=== PATIENT | female | born 1970 | race Two or more races ===

== ENCOUNTER 2023-09-02 16:19 | Inpatient (IN) | payer MEDICAID ==
[~2023-09-02] VITALS: Ht 160 cm; Wt 64.2 kg
[2023-09-02] MEDS ORDERED: SODIUM CHLORIDE 0.9% 1,000 ML IV ONE (16:45)
[2023-09-02 17:34] LABS: ALCOHOL, URINE DRUG SCREEN NEGATIVE (NEGATIVE); AMPHET/METH SCREEN,URINE POSITIVE (NEGATIVE); BARBITURATE SCREEN, URINE NEGATIVE (NEGATIVE); BENZODIAZEPINES SCREEN,URINE NEGATIVE (NEGATIVE); CANNABINOID SCREEN,URINE NEGATIVE (NEGATIVE); COCAINE SCREEN,URINE NEGATIVE (NEGATIVE); METHADONE SCREEN, URINE NEGATIVE (NEGATIVE); OPIATE SCREEN,URINE NEGATIVE (NEGATIVE); PHENCYCLIDINE SCREEN,URINE NEGATIVE (NEGATIVE)
[2023-09-02 17:49] LABS: COVID AG,FIA SOURCE NASAL SWAB
[2023-09-02 18:11] LABS: BASOPHILS % (AUTO) 0.6 % (0.0-2.0); HEMATOCRIT 41.9 % (36-46); HEMOGLOBIN 14.1 g/dL (12.0-16.0); LYMPHOCYTES # (AUTO) 1.3 K/uL (1.0-4.8); LYMPHOCYTES % (AUTO) 21.1 % (22.0-44.0); MEAN CORPUSCULAR HEMOGLOBIN 28.6 pg (26.0-34.0); MEAN CORPUSCULAR HGB CONC 33.7 G/dL (31.0-37.0); MEAN CORPUSCULAR VOLUME 85 fL (80-100); MONOCYTES # (AUTO) 0.5 K/uL (0.1-1.0); MONOCYTES % (AUTO) 8.4 % (2.0-9.0); NEUTROPHILS # (AUTO) 4.1 K/uL (1.8-7.7); NEUTROPHILS % (AUTO) 66.9 % (40.0-70.0); PLATELET COUNT (AUTO) 345 K/uL (150-450); RED BLOOD CELL COUNT(AUTO) 4.93 MIL/uL (4.00-5.20); RED CELL DISTRIBUTION WIDTH 13.5 % (11.5-14.5); WHITE BLOOD COUNT (AUTO) 6.1 K/uL (4.5-11.0)
[2023-09-02 18:12] LABS: SARS-COV2 (COVID) ANTIGEN,FIA Negative (Negative)
[2023-09-02 18:20] LABS: ANION GAP 8 mmol/L (8-16); CALCIUM, TOTAL 9.4 mg/dL (8.8-10.5); CARBON DIOXIDE 29 mmol/L (22-29); CHLORIDE 100 mmol/L (98-107); CREATININE 0.61 mg/dL (0.60-1.30); GLOMERULAR FILTR. RATE CALC > 60 mL/min (>60); GLUCOSE,RANDOM 233 mg/dL (70-110); POTASSIUM 3.7 mmol/L (3.5-5.1); SODIUM SERUM 137 mmol/L (136-145); UREA NITROGEN, BLOOD 17 mg/dL (7-18)
[2023-09-02 18:26] LABS: ALANINE AMINOTRANSFERASE 35 U/L (12-78); ALBUMIN 4.2 g/dL (3.4-5.0); ALKALINE PHOSPHATASE 97 U/L (46-116); ASPARTATE AMINOTRANSFERASE 20 U/L (15-37); BILIRUBIN,TOTAL 0.6 mg/dL (0.1-1.0)
[2023-09-02 18:32] LABS: ACETAMINOPHEN < 10 mcg/mL (10-30)
[2023-09-02 18:33] LABS: ALCOHOL, BLOOD (SERUM) < 3 mg/dL (0-10)
[2023-09-02 18:39] LABS: SALICYLATE 0.2 mg/dL (2.8-20.0)
[2023-09-02] MEDS ORDERED: LORazepam 2 MG/ML VIAL IM ONE ×2 (20:00→23:15)
[2023-09-02 22:24] LABS: ANION GAP 8 mmol/L (8-16); CALCIUM, TOTAL 9.2 mg/dL (8.8-10.5); CARBON DIOXIDE 29 mmol/L (22-29); CHLORIDE 101 mmol/L (98-107); GLOMERULAR FILTR. RATE CALC > 60 mL/min (>60); GLUCOSE,RANDOM 224 mg/dL (70-110); POTASSIUM 3.4 mmol/L (3.5-5.1); SODIUM SERUM 138 mmol/L (136-145); UREA NITROGEN, BLOOD 16 mg/dL (7-18)
[2023-09-02 22:29] LABS: ALANINE AMINOTRANSFERASE 35 U/L (12-78); ALBUMIN 4.2 g/dL (3.4-5.0); ALKALINE PHOSPHATASE 98 U/L (46-116); ASPARTATE AMINOTRANSFERASE 20 U/L (15-37); BILIRUBIN,TOTAL 0.6 mg/dL (0.1-1.0); TOTAL PROTEIN, SERUM 8.1 g/dL (6.4-8.2)
[2023-09-02 22:35] LABS: ACETAMINOPHEN < 2 mcg/mL (10-30)
[2023-09-02] MEDS ORDERED: HALOPERIDOL LACTATE 5 MG/ML VIAL IM ONE (23:15)
[2023-09-02] MEDS ORDERED: DiphenhydrAMINE HCL 50 MG/ML VIAL IM ONE (23:15)
[2023-09-03 02:51] VITALS: BP 125/89; PULSE 88; RESP 18; TEMP 97.6; O2SAT 98
[2023-09-03] MEDS ORDERED: PNEUMOCOCCAL VACCINE POLYVALENT 0.5 ML SYRINGE [PPSV23] IM. ONE (03:45)
[2023-09-03] MEDS ORDERED: CloNIDine HCL 0.1 MG TABLET PO PRN (06:00)
[2023-09-03] MEDS ORDERED: POTASSIUM CHLORIDE 20 MEQ ER TABLET PO ONE (06:00)
[2023-09-03] MEDS ORDERED: ACETAMINOPHEN 325 MG TABLET PO PRN (06:00)
[2023-09-03] MEDS ORDERED: DOCUSATE SODIUM 100 MG CAPSULE PO PRN (06:00)
[2023-09-03] MEDS ORDERED: ALBUTEROL SULFATE HFA 90 MCG/PUFF 8 GM INHALER IH PRN (06:00)
[2023-09-03] MEDS ORDERED: OMEPRAZOLE 20 MG CAPSULE PO PRN (06:00)
[2023-09-03] MEDS ORDERED: MAG HYDROX/ALUMINUM HYD/SIMETH ES 30 ML SUSPENSION UDCUP PO PRN (06:00)
[2023-09-03] MEDS ORDERED: ONDANSETRON HCL 4 MG TABLET PO PRN (06:00)
[2023-09-03] MEDS ORDERED: BACITRACIN 28 GM OINTMENT TP PRN (06:00)
[2023-09-03] MEDS ORDERED: LOPERAMIDE HCL 2 MG CAPSULE PO PRN (06:00)
[2023-09-03] MEDS ORDERED: BENZOCAINE/MENTHOL LOZENGE PO PRN (06:00)
[2023-09-03] MEDS ORDERED: MAGNESIUM HYDROXIDE SUSPENSION 30 ML UDCUP PO PRN (06:00)
[2023-09-03] MEDS ORDERED: GLUCAGON,HUMAN RECOMBINANT 1 MG VIAL IM PRN (06:00)
[2023-09-03] MEDS ORDERED: PETROLATUM,WHITE 28 GM JELLY TP PRN (06:00)
[2023-09-03 06:36] LABS: GLUCOMETER DEV NAME(LOC) BV3S.; GLUCOSE,POINT OF CARE 164 MG/DL (70-110)
[2023-09-03] MEDS: INSULIN LISPRO 100 UNITS/ML SQ PRN ×4 (06:49→20:06)
[2023-09-03] MEDS: HALOPERIDOL 5 MG TABLET PO PRN (08:06)
[2023-09-03] MEDS: LORazepam 2 MG TABLET PO PRN (08:06)
[2023-09-03 10:04] VITALS: RESP 18; O2SAT 97
[2023-09-03 10:05] VITALS: BP 116/74; PULSE 79; RESP 16; TEMP 97.6; O2SAT 97
[2023-09-03] MEDS: IBUPROFEN 600 MG TABLET PO PRN (10:05)
[2023-09-03 11:04] VITALS: RESP 17; O2SAT 97
[2023-09-03 11:36] LABS: GLUCOMETER DEV NAME(LOC) BV3S.; GLUCOSE,POINT OF CARE 188 MG/DL (70-110)
[2023-09-03 17:51] LABS: GLUCOMETER DEV NAME(LOC) BV3S.; GLUCOSE,POINT OF CARE 262 MG/DL (70-110)
[2023-09-03] MEDS: ZOLPIDEM TARTRATE 10 MG TABLET PO PRN (20:01)
[2023-09-03 20:16] LABS: GLUCOMETER DEV NAME(LOC) BV3S.; GLUCOSE,POINT OF CARE 289 MG/DL (70-110)
[2023-09-03 20:50] VITALS: BP 105/69; PULSE 91; RESP 18; TEMP 97.6; O2SAT 99
[2023-09-04 06:31] LABS: GLUCOMETER DEV NAME(LOC) BV3S.; GLUCOSE,POINT OF CARE 188 MG/DL (70-110)
[2023-09-04] MEDS: INSULIN LISPRO 100 UNITS/ML SQ PRN ×3 (06:39→20:39)
[2023-09-04 08:18] LABS: BASOPHILS % (AUTO) 0.4 % (0.0-2.0); EOSINOPHILS % (AUTO) 6.3 % (1.0-6.0); HEMATOCRIT 41.2 % (36-46); HEMOGLOBIN 14.3 g/dL (12.0-16.0); LYMPHOCYTES # (AUTO) 1.5 K/uL (1.0-4.8); LYMPHOCYTES % (AUTO) 26.4 % (22.0-44.0); MEAN CORPUSCULAR HEMOGLOBIN 29.5 pg (26.0-34.0); MEAN CORPUSCULAR HGB CONC 34.6 G/dL (31.0-37.0); MEAN CORPUSCULAR VOLUME 85 fL (80-100); MONOCYTES # (AUTO) 0.4 K/uL (0.1-1.0); MONOCYTES % (AUTO) 7.3 % (2.0-9.0); NEUTROPHILS # (AUTO) 3.4 K/uL (1.8-7.7); NEUTROPHILS % (AUTO) 59.6 % (40.0-70.0); PLATELET COUNT (AUTO) 349 K/uL (150-450); RED BLOOD CELL COUNT(AUTO) 4.84 MIL/uL (4.00-5.20); RED CELL DISTRIBUTION WIDTH 13.3 % (11.5-14.5); WHITE BLOOD COUNT (AUTO) 5.6 K/uL (4.5-11.0)
[2023-09-04] MEDS: IBUPROFEN 600 MG TABLET PO PRN (08:19)
[2023-09-04] MEDS: HALOPERIDOL 5 MG TABLET PO PRN (08:20)
[2023-09-04] MEDS: LORazepam 2 MG TABLET PO PRN ×2 (08:20→17:26)
[2023-09-04 08:28] VITALS: BP 116/72; PULSE 74; RESP 16; TEMP 97.6; O2SAT 97
[2023-09-04 08:50] LABS: ALANINE AMINOTRANSFERASE 35 U/L (12-78); ALBUMIN 3.6 g/dL (3.4-5.0); ALKALINE PHOSPHATASE 89 U/L (46-116); ANION GAP 8 mmol/L (8-16); ASPARTATE AMINOTRANSFERASE 21 U/L (15-37); BILIRUBIN,TOTAL 0.7 mg/dL (0.1-1.0); CALCIUM, TOTAL 9.5 mg/dL (8.8-10.5); CARBON DIOXIDE 27 mmol/L (22-29); CHLORIDE 102 mmol/L (98-107); CHOL/HDL RATIO 4.3 (3.9-5.7); CHOLESTEROL 172 mg/dL (131-200); CREATININE 0.58 mg/dL (0.60-1.30); GLOMERULAR FILTR. RATE CALC > 60 mL/min (>60); GLUCOSE,RANDOM 193 mg/dL (70-110); HDL CHOLESTEROL 40 mg/dL (40-60); LDL CHOL (CALC.) 110 mg/dL (0-130); PHOSPHORUS 4.5 mg/dL (2.5-4.9); POTASSIUM 4.1 mmol/L (3.5-5.1); SODIUM SERUM 137 mmol/L (136-145); THYROID STIMULATING HORMONE 0.29 uIU/mL (0.36-3.74); TOTAL PROTEIN, SERUM 7.4 g/dL (6.4-8.2); TRIGLYCERIDES 108 mg/dL (15-150); UREA NITROGEN, BLOOD 24 mg/dL (7-18)
[2023-09-04 08:56] LABS: HEMOGLOBIN A1C 7.3 % (3.8-5.6)
[2023-09-04 11:46] LABS: GLUCOMETER DEV NAME(LOC) BV3S.; GLUCOSE,POINT OF CARE 182 MG/DL (70-110)
[2023-09-04 21:03] VITALS: BP 119/77; PULSE 91; RESP 18; TEMP 97.6; O2SAT 97
[2023-09-04] MEDS: ZOLPIDEM TARTRATE 10 MG TABLET PO PRN (21:23)
[2023-09-05] MEDS: INSULIN LISPRO 100 UNITS/ML SQ PRN (06:44)
[2023-09-05 07:10] VITALS: BP 126/78; PULSE 86; RESP 17; TEMP 97.8
[2023-09-05] MEDS: IBUPROFEN 600 MG TABLET PO PRN (07:14)
[2023-09-05 07:26] LABS: GLUCOMETER DEV NAME(LOC) BV3S.; GLUCOSE,POINT OF CARE 194 MG/DL (70-110)
[2023-09-05 08:34] VITALS: BP 107/62; PULSE 84; RESP 18; TEMP 96.2
== END 2023-09-05 13:16 | disposition home or self-care (01) | DRG 753 ==
LOC: EMS 16:21 → B3A 23:43 → UNDOADMIN 23:43 → B3A 23:44
PROVIDERS: ADMIT Psychiatry & Neurology Psychiatry; ATTEND Psychiatry & Neurology Psychiatry
DX: F31.9 Bipolar disorder, unspecified (principal); R45.851 Suicidal ideations; E11.9 Type 2 diabetes mellitus without complications; E87.6 Hypokalemia; F15.10 Other stimulant abuse, uncomplicated; F41.9 Anxiety disorder, unspecified; Z20.822 Contact with and (suspected) exposure to COVID-19; G47.00 Insomnia, unspecified; K59.00 Constipation, unspecified; E66.9 Obesity, unspecified; Z68.25 Body mass index [BMI] 25.0-25.9, adult; Z88.0 Allergy status to penicillin
CPT/HCPCS: 80053; 80061; 80307; 82962; 83036; 83735; 84100; 84443; 85025; 93005; G0480; G0481; J1200; J1630; J2060